=== PATIENT | male | born 1965 | race Caucasian/White ===

== ENCOUNTER 2024-06-04 10:32 | Inpatient (IN) ==
[2024-06-04 11:52] LABS: Basophils # (auto) 0.09 K/uL (0.00-0.20); Basophils % (auto) 0.8 %; Eosinophils # (auto) 0.13 K/uL (0.00-0.50); Eosinophils % (auto) 1.1 %; Hematocrit (blood only) 50.9 % (42.0-52.0); Hemoglobin 17.4 g/dl (14.0-18.0); Immature Granulocytes # (auto) 0.25 K/uL (0.01-0.20); Immature Granulocytes % (auto) 2.2 %; Lymphocytes # (auto) 2.11 K/uL (1.20-3.40); Lymphocytes % (auto) 18.3 %; Mean Corpuscular Hemoglobin 32.5 pg (25.0-34.0); Mean Corpuscular Hgb Conc 34.2 g/dL (32.0-36.0); Mean Platelet Volume 10.4 fL (9.4-12.4); Monocytes # (auto) 1.26 K/uL (0.11-0.59); Monocytes % (auto) 10.9 %; Neutrophils # (auto) 7.68 K/uL (1.40-6.50); Neutrophils % (auto) 66.7 %; Platelet Count 212 K/uL (130-400); RDW Coefficient of Variation 14.8 % (11.5-14.5); RDW Standard Deviation 51.5 fL (36.4-46.3); Red Blood Count 5.36 M/uL (4.70-6.10); White Blood Count 11.52 K/ul (4.8-10.8)
[2024-06-04 12:04] LABS: Albumin Globulin Ratio 1.1 (0.9-2); Albumin Level 4.1 gm/dl (3.4-5.0); BUN Creatinine Ratio 11.2 (10-20); Bilirubin,Total 1.9 mg/dl (0.2-1.0); Calcium 9.2 mg/dl (8.6-10.3); Creatinine Clr Calc Pharmacy 140.2 ml/min; Est GFR (African American) 109.2 ml/min; Est GFR (Non-African American) 94.3 ml/min; Globulin 3.6 gm/dl (2.5-4.0); Potassium 4.2 mmol/L (3.5-5.1); Total Protein 7.7 gm/dl (6.0-8.3)
[2024-06-04 12:09] LABS: INR 1.1 (0.9-1.1); Prothrombin Time 11.4 Seconds (9.0-12.0); Troponin I High Sensitivity 5.6 pg/ml (0-20)
--- NOTE | 2024-06-04 12:14 | XRay Report ---
SINGLE VIEW CHEST CLINICAL HISTORY: Atypical chest pain. FINDINGS: 2 PA chest radiographs are obtained. No prior studies are available for comparison at the t karel of dictation. The heart is mildly enlarged noting atherosclerotic calcification of the thoracic a yoel. The pulmonary vasculature is noncongested. Mild atelectasis is noted at the lung bases. The demetra gs and pleural spaces are otherwise clear. No pneumothorax is seen. There are chronic/healed right-si ded rib fractures. IMPRESSION: No active disease in the chest. ACT 112: Negative or not required by law. Electronically signed by: Vik Baumann M.D. 06/04/2024 12:13 PM
--- NOTE | 2024-06-04 12:49 | Emergency Department Note ---
Impression & Plan Hypertensive urgency, Hypothyroidism, Dyspnea on exertion, Alcohol dependence ED Provider Note NAME: MASOUD VELASQUEZ AGE: 58 SEX: M : 1965 ARRIVES VIA: Walk-In INFORMANT: Patient ED PROVIDER(S): Kirby Milan MD CHIEF COMPLAINT: Shortness of breath, referred. PLAN: Disposition: Admit MEDICAL DECISION MAKING: The patient is a 58-year-old gentleman with a past medical history of hypertension, hypothyroidism, alcohol use disorder/dependence, chewing tobacco use who presents to the emergency department for evaluation of ongoing dyspnea on exertion and edema which she reports has been ongoing for months with progressive worsening. Patient reports he was seen in [place] emergency department a week ago and was told he had "fluid in his lungs and heart but reports she was not given any medications., Records from this visit were eventually obtained and his visit was initially due to suicidal statements made while intoxicated. Upon becoming sober patient denied SI or interested in voluntary admission for depression. He was offered medical admission but had declined. He had a scheduled appointment with his primary care doctor subsequently to establish care who he saw yesterday and per his report was told to go to the emergency department immediately but given the patient did not want to do this yesterday who presents for evaluation today. Eventually, the patient did admit that his doctors recommendations likely were influenced by the fact that he was intoxicated when he went to his appointment. The patient reports he had been on medication for his blood pressure and thyroid 2 years ago but stopped going to a doctor at that time due to using his insurance due to increased income when he was . But since then he has been and now has insurance and is interested in reestablishing care and compliance with his medications. He admits that he should stop drinking alcohol and is open to this but adds that it has been "his coping mechanism" since not being on medications for depression as he was previously. Of note, the patient did arrive to emergency department during time of high volume, acuity and prolonged emergency department waiting times. Critical pathways initiated from triage. On evaluation patient is no distress, afebrile with blood pressure 160s/100s with heart in the 90s and vital signs otherwise stable. My examination patient does appear hypervolemic with 1+ bilateral lower extremity pitting edema. Lungs are clear with normal respiratory effort. EKG without overt acute ischemia. CXR negative for acute cardiopulmonary process per my personal preliminary review/interpretation. WBC 11.5 K, nonspecific. H/H and platelets within normal limits. Chemistry without metabolic acidosis. Electrolytes unremarkable. LFTs with total bilirubin 1.9, nonspecific and LFTs otherwise normal. Highest 2 troponin 5.6, within normal limits. BNP is normal. Lipase is not elevated. Procalcitonin is undetectable. He has not TSH is elevated at 29 with free T40.53. Respiratory BioFire was negative. We did review his workup. Discussed that it is important to reestablish care and continuity to obtain control of his medical conditions which she has gone untreated for the past couple of years. He describes numerous barriers to care including transportation, lack of detailed knowledge of his prior medications and dosing, and with this lack of background apparent difficulty in initiating his medical care with a new primary care doctor. Given the patient's barriers to care the patient did agree with referral to hospital service for consideration of admission for further management of with hypertensive urgency, hypothyroidism and alcoholism with high risk for severe alcohol withdrawal. The patient's treatment was initiated with 10 mg of IV labetalol and 20 mg of Lasix. He is additionally given 1 mg of Ativan and 50 mg of Librium to prevent withdrawal. Case was discussed with Dr. Marie, [facility] [place], who will evaluate the patient for admission. Further management per admitting team. Triage Nursing notes reviewed and agree them. Prior/external medical records reviewed Vital Signs: reviewed Differential diagnosis: Reactive airway disease, pneumonia, pneumothorax, COPD, CHF, infections, cardiac ischemia, pulmonary embolism, musculoskeletal, gastrointestinal, as well as other pathologies. ER treatment provided: See below. Diagnostics interpreted by me: ECG: Sinus rhythm with PACs, 91 bpm, no overt ST elevation or depression, QTc 442, QRS 78. Cardiac Monitoring: An order for continuous cardiac monitoring was placed and demonstrated Sinus rhythm with PACs, 91 bpm Laboratory studies: See below Imaging studies: See below Consultation(s): Case was discussed with Dr. Marie [facility] [place]ist, who will evaluate the patient for admission. HPI: The patient is a 58-year-old gentleman with a past medical history of hypertension, hypothyroidism, alcohol use disorder/dependence, chewing tobacco use who presents to the emergency department for evaluation of ongoing dyspnea on exertion and edema which she reports has been ongoing for months with progressive worsening. Patient reports he was seen in [place] emergency department a week ago and was told he had "fluid in his lungs and heart but reports she was not given any medications., Records from this visit were eventually obtained and his visit was initially due to suicidal statements made while intoxicated. Upon becoming sober patient denied SI or interested in voluntary admission for depression. He was offered medical admission but had declined. He had a scheduled appointment with his primary care doctor subsequently to establish care who he saw yesterday and per his report was told to go to the emergency department immediately but given the patient did not want to do this yesterday who presents for evaluation today. Eventually, the patient did admit that his doctors recommendations likely were influenced by the fact that he was intoxicated when he went to his appointment. The patient reports he had been on medication for his blood pressure and thyroid 2 years ago but stopped going to a doctor at that time due to using his insurance due to increased income when he was . But since then he has been and now has insurance and is interested in reestablishing care and compliance with his medications. He admits that he should stop drinking alcohol and is open to this but adds that it has been "his coping mechanism" since not being on medications for depression as he was previously. ROS: See above HPI for pertinent positives & negatives. A total of 10 systems reviewed and were otherwise negative. VITALS:See Below PHYSICAL EXAMINATION: GENERAL: Awake, alert, in no distress, BMI 47.1 HENT: Normocephalic, atraumatic. Oropharynx unremarkable. EYES: Normal conjunctiva. Sclera non-icteric. NECK: Supple. No nuchal rigidity. FROM. No JVD. RESPIRATORY: Clear to auscultation. CARDIAC: Regular rate, normal rhythm. Extremities warm and well perfused. Pulses equal. ABDOMEN: Soft, non-distended. No tenderness to palpation. No rebound or guarding. No masses. MUSCULOSKELETAL: Chest examination reveals no tenderness. The back is symmetrical on inspection without obvious abnormality. There is no CVA tenderness to palpation. No joint edema. LOWER EXTREMITIES: Calves are equal size bilaterally and non-tender. 1+ BLE edema. No discoloration. NEURO: Normal sensorium. No sensory or motor deficits noted. SKIN: No rash or jaundice noted. Kirby Milan MD Past Med/Surg History Problem List (Updated 06/05/24 @ 01:14 by Kirby Milan MD) Alcohol dependence (Acute) Dyspnea on exertion (Acute) Hypertensive urgency (Acute) Anxiety and depression GERD (gastroesophageal reflux disease) Hypothyroidism (Acute) Alcohol withdrawal SOB (shortness of breath) Chest pain Social History Smoking Status: Never smoker Tobacco Type: Smokeless Tobacco (Dip or Chew) Preferred Language: Cymro Feels Safe at Home: Yes Allergies Allergies Allergy/AdvReac Type Severity Reaction Status Date / Time Iodinated Contrast Media Allergy Intermediate Hives Verified 06/04/24 18:02 Home Meds Home Medications Medication Instructions Recorded Confirmed No Known Home Medications 06/04/24 06/04/24 Results & Data (ED) Vital Signs Vital Signs - 24 hr 06/04/24 10:45 06/04/24 15:52 06/04/24 15:56 Temperature 36.2 C L Temperature Source Temporal Artery Scan Pulse Rate 90 Pulse Rate [Finger] 93 H Respiratory Rate 28 H 18 Respiratory Effort / Characteristics Short of Breath SOB on Exertion Respiratory Depth Shallow Respiratory Pattern Tachypnea Blood Pressure 162/100 H Blood Pressure [Right Arm] 155/118 H Blood Pressure Mean 120 Blood Pressure Mean [Right Arm] 130 Pulse Oximetry 97 97 96 Oxygen Delivery Method Room Air Room Air Room Air Oxygen Flow Rate 0 Sepsis Recent Fever Within 48 Hours No Sepsis New/Unexplained Change in Mental Status No Sepsis Action Taken by Nursing No Action Required Laboratory Data Attestation: I reviewed the patient's lab results. 06/04/24 11:24 06/04/24 11:24 Lab Results 06/04/24 06/04/24 06/04/24 Range/Units 11:24 11:27 15:15 WBC 11.52 H (4.8-10.8) K/ul RBC 5.36 (4.70-6.10) M/uL Hgb 17.4 (14.0-18.0) g/dl Hct 50.9 (42.0-52.0) % MCV 95.0 (80.0-100.0) fL MCH 32.5 (25.0-34.0) pg MCHC 34.2 (32.0-36.0) g/dL RDW Std Deviation 51.5 H (36.4-46.3) fL RDW Coeff of Jorge Alberto 14.8 H (11.5-14.5) % Plt Count 212 (130-400) K/uL MPV 10.4 (9.4-12.4) fL Immature Gran % (Auto) 2.2 % Neut % (Auto) 66.7 % Lymph % (Auto) 18.3 % [place] % (Auto) 10.9 % Eos % (Auto) 1.1 % Baso % (Auto) 0.8 % Neut # (Auto) 7.68 H (1.40-6.50) K/uL Lymph # (Auto) 2.11 (1.20-3.40) K/uL [place] # (Auto) 1.26 H (0.11-0.59) K/uL Eos # (Auto) 0.13 (0.00-0.50) K/uL Baso # (Auto) 0.09 (0.00-0.20) K/uL Immature Gran # (Auto) 0.25 H (0.01-0.20) K/uL PT 11.4 (9.0-12.0) Seconds INR 1.1 (0.9-1.1) Sodium 136 (136-145) mmol/L Potassium 4.2 (3.5-5.1) mmol/L Chloride 102 (98-107) mmol/L Carbon Dioxide 25 (21-32) mmol/L Anion Gap 9 (3-11) BUN 10 (6-23) mg/dl Creatinine 0.89 (0.6-1.4) mg/dl Est Cr Clr Drug Dosing 140.2 ml/min Est GFR ( Amer) 109.2 ml/min Est GFR (Non-Af Amer) 94.3 ml/min BUN/Creatinine Ratio 11.2 (10-20) Glucose 98 (70-99(Fasting)) mg/dl Calcium 9.2 (8.6-10.3) mg/dl Magnesium 2.1 (1.7-2.4) mg/dl Total Bilirubin 1.9 H (0.2-1.0) mg/dl AST 39 (13-39) U/L ALT 47 (7-52) U/L Alkaline Phosphatase 72 (34-104) U/L Troponin I High Sens 5.6 (0-20) pg/ml B-Natriuretic Peptide 25 (0-100) pg/ml Total Protein 7.7 (6.0-8.3) gm/dl Albumin 4.1 (3.4-5.0) gm/dl Globulin 3.6 (2.5-4.0) gm/dl Albumin/Globulin Ratio 1.1 (0.9-2) Lipase 8 L (11-82) U/L Procalcitonin < 0.02 (0-0.5) ng/ml TSH 29.836 H (0.300-4.500) uIu/ml Free T4 0.53 L (0.61-1.60) ng/dl Adenovirus (PCR) Not Detected (NotDetected) B. pertussis DNA (PCR) Not Detected (NotDetected) B.parapertussis DNA PCR Not Detected (NotDetected) C. pneumoniae DNA (PCR) Not Detected (NotDetected) Coronavirus OC43 (PCR) Not Detected (NotDetected) Coronavirus HKU1 (PCR) Not Detected (NotDetected) Coronavirus 229E (PCR) Not Detected (NotDetected) SARS-CoV-2 (PCR) Not Detected (NotDetected) Coronavirus NL63 (PCR) Not Detected (NotDetected) Human Metapneumovir PCR Not Detected (NotDetected) Influenza Type A (PCR) Not Detected (NotDetected) Influenza Type B (PCR) Not Detected (NotDetected) M. pneumoniae (PCR) Not Detected (NotDetected) Parainfluenza 1 (PCR) Not Detected (NotDetected) Parainfluenza 2 (PCR) Not Detected (NotDetected) Parainfluenza 3 (PCR) Not Detected (NotDetected) Parainfluenza 4 (PCR) Not Detected (NotDetected) RSV (PCR) Not Detected (NotDetected) Entero/Rhino (PCR) Not Detected (NotDetected) Administered Medications Enoxaparin Sodium (Enoxaparin Inj 40 Mg/0.4 Ml Syr) 40 mg SQ Q12H [facility] Stop: 07/04/24 21:59 Last Admin: 06/04/24 23:49 Dose: Not Given Documented By: HB Discontinued Medications Chlordiazepoxide HCl (Chlordiazepoxide Hcl 25 Mg Cap) 50 mg PO NOW ONE Stop: 06/04/24 17:08 Last Admin: 06/04/24 17:38 Dose: Not Given Documented By: ANGELITA Furosemide (Furosemide Inj 20 Mg/2 Ml Vial) 20 mg IV ONE ONE Stop: 06/04/24 16:45 Last Admin: 06/04/24 17:38 Dose: Not Given Documented By: ANGELITA Multivitamins 10 ml/ Thiamine HCl 100 mg/ Folic Acid 1 mg/Sodium Chloride 1,011.2 mls @ 500 mls/hr IV .Q2H2M ONE Stop: 06/04/24 20:16 Last Infusion: 06/04/24 20:56 Dose: Infused Documented By: Admin: 06/04/24 18:30 Dose: 500 mls/hr Documented By: ANGELITA Labetalol HCl (Labetalol Hcl Iv 5 Mg/Ml 20ml) 10 mg IV NOW STA Stop: 06/04/24 16:45 Last Admin: 06/04/24 18:19 Dose: Not Given Documented By: ANGELITA Lorazepam (Lorazepam 1 Mg Tab) 1 mg SL NOW STA Stop: 06/04/24 17:07 Last Admin: 06/04/24 17:38 Dose: Not Given Documented By: ANGELITA Phenobarbital Sodium (Phenobarbital Sodium 130 Mg/Ml Vial) 250 mg IM NOW STA Stop: 06/04/24 17:47 Last Admin: 06/04/24 18:42 Dose: 250 mg Documented By: MEGAN Phenobarbital Sodium (Phenobarbital Sodium 65 Mg/Ml Vial) 190 mg IM Q3H MYESHA Stop: 06/05/24 00:01 Last Admin: 06/04/24 21:02 Dose: Not Given Documented By: ANGELITA Phenobarbital Sodium (Phenobarbital Sodium 130 Mg/Ml Vial) 190 mg IM Q3H MYESHA Stop: 06/05/24 00:16 Last Admin: 06/04/24 21:09 Dose: 190 mg Documented By: ANGELITA Imaging Data Radiologist's Impression: Chest X-Ray 06/04/24 00:00 SINGLE VIEW CHEST CLINICAL HISTORY: Atypical chest pain. FINDINGS: 2 PA chest radiographs are obtained. No prior studies are available for comparison at the time of dictation. The heart is mildly enlarged noting atherosclerotic calcification of the thoracic aorta. The pulmonary vasculature is noncongested. Mild atelectasis is noted at the lung bases. The lungs and pleural spaces are otherwise clear. No pneumothorax is seen. There are chronic/healed right-sided rib fractures. IMPRESSION: No active disease in the chest. ACT 112: Negative or not required by law. Electronically signed by: Vik Baumann M.D. 06/04/2024 12:13 PM Discharge Plan Visit Data Chief Complaint: Shortness of Breath/Dyspnea Stated Complaint: SOB AND CHEST TIGHTNESS ED Provider: Kirby Milan Discharge Problem: Hypertensive urgency, Hypothyroidism, Dyspnea on exertion, Alcohol dependence Patient Disposition: Admitted As Inpatient Discharge Instructions Interventions: ED Discharge Assessment Last Done: 06/04/24 21:54 Discharge Problem: Hypothyroidism Qualifiers: Hypothyroidism type: unspecified Qualified Code(s): E03.9 - Hypothyroidism, unspecified Alcohol dependence Qualifiers: Substance use status: unspecified alcohol-induced disorder Qualified Code(s): F 10.29 - Alcohol dependence with unspecified alcohol-induced disorder
[2024-06-04 16:33] LABS: Adenovirus PCR Not Detected (NotDetected); Bordetella parapertussis PCR Not Detected (NotDetected); Bordetella pertussis PCR Not Detected (NotDetected); Chlamydia pneumoniae PCR Not Detected (NotDetected); Coronavirus 229E PCR Not Detected (NotDetected); Coronavirus CoV-2 (COVID19)PCR Not Detected (NotDetected); Coronavirus HKU1 PCR Not Detected (NotDetected); Coronavirus NL63 PCR Not Detected (NotDetected); Coronavirus OC43PCR Not Detected (NotDetected); Human Metapneumovirus PCR Not Detected (NotDetected); Influenza A PCR Not Detected (NotDetected); Influenza B PCR Not Detected (NotDetected); Mycoplasma pneumoniae PCR Not Detected (NotDetected); Parainfluenza Virus 1 PCR Not Detected (NotDetected); Parainfluenza Virus 2 PCR Not Detected (NotDetected); Parainfluenza Virus 3 PCR Not Detected (NotDetected); Parainfluenza Virus 4 PCR Not Detected (NotDetected); Respiratory Syncytial VirusPCR Not Detected (NotDetected); Rhinovirus/Enterovirus PCR Not Detected (NotDetected)
--- NOTE | 2024-06-04 16:48 | History & Physical Report ---
Date of Service June 04, 2024 Assessment & Plan (1) Alcohol withdrawal: Plan: Patient presented for GARBER and midsternal chest pain x 2 months He reports he is currently drinking a 30 pack of beer and 1 bottle of whiskey per week Patient was last drink was the evening of 06/03 (3-4 shots of fireball, 3-4 beers) He is amenable to cutting back in alcohol, and getting back on his prior medications Magnesium level ordered, pending Banana bag x 1 AWSS active protocol with phenobarbital Daily thiamine and folate supplementation A.m. CBC, BMP, mag (2) SOB (shortness of breath): Plan: Ongoing shortness of breath both with exertion and at rest x 2 months Mild leukocytosis 11.52 with a neutrophil predominance; afebrile CXR without acute findings Procalcitonin WNL Troponin WNL BioFire negative BNP WNL at 25 Echocardiogram ordered, pending Continuous pulse oximetry Supplemental oxygen as needed to maintain SpO2 >94% (3) Chest pain: Plan: Troponin WNL on arrival, repeat pending EKG in sinus rhythm on arrival; no EKGs prior for comparison Continuous telemetry monitoring (4) Hypothyroidism: Plan: TSH ordered, pending Patient reports he was previously on thyroid medication (5) GERD (gastroesophageal reflux disease): Plan: Restart patient on famotidine 10 mg p.o. QAM (6) Anxiety and depression: Plan: Was previously on antidepressants and antianxiety medication, but is not sure what he was on; no records He is amenable to speaking with psychiatry regarding his current divorce/depression, which is contributing to his alcoholism Psychiatry consult appreciated Plan Disposition: Admit to PCU telemetry Full code Heart healthy diet VTE PPx: Lovenox 40 mg SQ q12h History of Present Illness Chief Complaint: SOB/dyspnea Primary Care Provider: Perry Loo MD Antonio is a 58-year-old male with PMH of HTN, alcohol use disorder, and hypothyroidism. He presented on 06/04 for midsternal chest pain and SOB x 2 m onth with an acute exacerbation over the past 24 hours. Patient is tearful and appears anxious on arrival. He reports he was at the [place] emergency department last week and was told he had "fluid around his lungs and heart". Patient is currently going through a divorce, and does report that he has been drinking more frequently due to depression. He drinks a 30 pack of beer per week, as well as 1 bottle of whiskey per week. This has been ongoing for the past 2.5 years. The last time he tried to detox, he experienced tremors/blackouts, and ended up calling an ambulance; he was subsequently hospitalized for 3-4 days; he is unsure if he was on Librium or phenobarbital at the time. Patient is frustrated as he saw a new PCP yesterday, and was told to come to the hospital due to trouble breathing; he also reports that he may have been noticeably intoxicated at his PCPs office. PCP was Perry Loo in [place]. Patient's last drink was last night on the evening of 06/03; reports he drank 3-4 shots of fireball whiskey, and 3-4 beers. Patient reports both SOB at rest and with exertion. He is unsure if it is worse when he lies flat on his back. He reports he does not sleep well anymore as he is concerned that he will quit breathing. No CPAP at night. No supplemental oxygen at baseline. He denies smoking, but does report that he would smoke "reefer" to relax. Inderjit tionally, he does chew snuff, and reports that he swallows it. Patient is amenable to cutting back on his alcohol use at this time. Patient is also amenable to seeing psychiatry while he is inpatient; no thoughts of self-harm, suicidal lesions, or thoughts of harming others. He wants to get back on his prior medications, but does not know what medications he was on; does not have records. He reports he supposed to be on antianxiety, antidepression, hypothyroid, and GERD medication. His previous pharmacy was the [facility]. Additionally, patient does note he has had worsening chest pain midsternally and on the left side with radiation to the left shoulder over the past 2 months. He reports this comes on intermittently and can last for 55 to 60 seconds at a time. He has not taken any additional medications for this pain, but does note it is new for him. Patient does have an allergy to radiocontrast dye (hives/blisters), no anaphylaxis. He denies any other medication allergies. Patient is hypertensive at 155/118 at time of admission; SpO2 96% on room air. ROS: Patient endorses intermittent midsternal chest pain, and SOB at rest and with exertion. Patient denies fever, chills, night sweats, dizziness/lightheadedness, headache, chest palpitations, abdominal pain, N/V/D, or changes in urinary/bowel habits. Allergies Allergy/AdvReac Type Severity Reaction Status Date / Time Iodinated Contrast Media Allergy Intermediate Hives Verified 06/04/24 18:02 Home Medications Medication Instructions Recorded Confirmed Type No Known Home Medications 06/04/24 06/04/24 History Past Med/Surg History Problem List (Updated 06/05/24 @ 01:14 by Kirby Milan MD) Alcohol dependence (Acute) Dyspnea on exertion (Acute) Hypertensive urgency (Acute) Anxiety and depression GERD (gastroesophageal reflux disease) Hypothyroidism (Acute) Alcohol withdrawal SOB (shortness of breath) Chest pain Social History Smoking Status: Never smoker Tobacco Type: Smokeless Tobacco (Dip or Chew) Hx Alcohol Use: Yes Alcohol type: beer and hard liquor Hx Substance Use: Yes Last Used Substance: Days (ago) Preferred Language: Togolese Communication Ability: Effective Supervisor Grinding Required: No Beliefs That Will Affect Care: None Current Living Situation: Alone Feels Safe at Home: Yes Safety Concerns: Feels Safe At This Time Assistive Devices: None Review of Systems Review of Systems: See HPI above Physical Exam Physical Exam: General: Patient is anxious and tearful in the room; non-toxic appearing; cooperative; SpO2 96% on RA HEENT: normocephalic, atraumatic; no scleral icterus; PERRLA; vision and hearing grossly intact Neck: supple; no lymphadenopathy; trachea midline Skin: Diaphoretic; warm, without signs of tenting; no cyanosis; no rashes, bruising, lesions, or erythema noted CV: chest wall NTP; RRR; S1/S2 normal; no murmurs/rubs/gallops; pulses intact and symmetric at radial, DP, and PT Lungs: no acute respiratory distress; symmetrical chest wall expansion; clear breath sounds across all lung gonzalez w/o adventitious sounds; no wheezing ABD: Soft, NTP; BS present; no rebound/guarding; suboptimal exam secondary to body habitus MSK: no tics or fasciculations; nonpitting edema noted in the LEs b/l, nonerythematous Neuro: A&Ox3; normal mood and affect; fluent speech; no focal deficits; sensation grossly intact in the LEs b/l Results & Data Results & Data Vital Signs (Past 12 Hours) Vital Signs Temp Pulse Pulse Resp BP BP Pulse Ox 06/04/24 15:56 93 H 18 155/118 H 96 06/04/24 15:52 97 06/04/24 10:45 36.2 C L 90 28 H 162/100 H 97 O2 Del Method O2 Flow Rate 06/04/24 15:56 Room Air 06/04/24 15:52 Room Air 0 06/04/24 10:45 Room Air Laboratory Results Abnormal lab results 06/04/24 Range/Units 11:24 WBC 11.52 H (4.8-10.8) K/ul RDW Std Deviation 51.5 H (36.4-46.3) fL RDW Coeff of Jorge Alberto 14.8 H (11.5-14.5) % Neut # (Auto) 7.68 H (1.40-6.50) K/uL Anderson # (Auto) 1.26 H (0.11-0.59) K/uL Immature Gran # (Auto) 0.25 H (0.01-0.20) K/uL Total Bilirubin 1.9 H (0.2-1.0) mg/dl Lipase 8 L (11-82) U/L Diagnostic Findings Chest X-Ray 06/04/24 00:00 SINGLE VIEW CHEST CLINICAL HISTORY: Atypical chest pain. FINDINGS: 2 PA chest radiographs are obtained. No prior studies are available for comparison at the time of dictation. The heart is mildly enlarged noting atherosclerotic calcification of the thoracic aorta. The pulmonary vasculature is noncongested. Mild atelectasis is noted at the lung bases. The lungs and pleural spaces are otherwise clear. No pneumothorax is seen. There are chronic/healed right-sided rib fractures. IMPRESSION: No active disease in the chest. ACT 112: Negative or not required by law. Electronically signed by: Vik Baumann M.D. 06/04/2024 12:13 PM ECG Additional Comments: ECG revealed sinus rhythm with PACs at 91 bpm; QTc 442 No prior EKGs for comparison Code Status & VTE Plan Code Status Full code VTE Prophylaxis Plan VTE Prophylaxis will be ordered: Yes Supervising Physician Co-Signing Physician Notes Patient seen and examined, chart reviewed, case discussed with Serge Castorena PA-C and I agree with the assessment and plan as above except as otherwise noted Labs and images reviewed 58-year-old male who presents with depression, alcohol use, and concerns for lower extremity swelling. He has no orthopnea, chest pain, or dyspnea. He has been for the last 2 years drinking up to 30 beers and 1/5 of fireball whiskey daily, sometimes tries to stretch this out when he runs out of money but does experience shakes and withdrawal symptoms. Last attempted to get sober when he was going to testify as part of a court case over a year ago and at that time had severe withdrawal symptoms, blacked out, and required hospitalization. Last drink evening of 06/03, over that day he had several beers and shots of whiskey. No known history of liver disease. He does not have a transaminitis Given high risk of withdrawal symptoms, severe symptoms, and history of precipitated withdrawal and with no underlying hepatic dysfunction reasonable candidate for phenobarbital. Will use [facility] protocol as below with a 8 mg/kg ideal body weight initial load IBW x (6-15mg/kg) = total loading dose Give 40% loading dose immediately IM, then 30% after 3 hours IM, then 30% after 3 hours. May check serum phenobarb level 5 hours post last IM admin WIll target 8mg/kg IBW total load. High risk of withdrawal, low-med respiratory risk 8mg/kg * 78kg IBW = 624mg. 40% loading dose = ~250mg - Give 250mg IM x1 NOW - Give 190mg IM x1 after 3 hours - Give 190mg IM x1 after another 3 hours Every 8 hours 65 mg IM as needed dose ordered. Goal RASS 0/-1 - Soft stop: 20mg/kg cumulative dose - Hard stop: 30mg/kg cumulative dose Admit to telemetry on end-tidal CO2 monitoring Folic acid, thiamine supplementation continued. Agree with remaining as above PG Care Time/CCT Total # of Minutes Spent Total Time Spent with Patient: Total time spent is greater than 50% in coordination of care (as documented) at patient's floor/unit and/or counseling patient: [place] [address] INT INP/OBS CARE 3/75MIN Patient Type New Medical Decision Making High Complexity Diagnoses Alcohol withdrawal F10.939 SOB (shortness of breath) R06.02 Chest pain R07.9 Hypothyroidism E03.9 GERD (gastroesophageal reflux disease) K21.9 Anxiety and depression F41.9; F32.A
[2024-06-04] MEDS: chlordiazePOXIDE HCl 25 MG CAP PO ONE (17:38)
[2024-06-04] MEDS: LORazepam 1 MG TAB SL STA (17:38)
[2024-06-04] MEDS: FUROSEMIDE INJ 20 MG/2 ML VIAL IV ONE (17:38)
[2024-06-04] MEDS ORDERED: Patient's ALLERGY Info needs ENTERED STA (17:43)
[2024-06-04] MEDS ORDERED: PHENobarbital PO Alcohol Withdrawal PO STA (17:46)
[2024-06-04] MEDS ORDERED: PHENobarbital sodium 65 MG/ML VIAL IM PRN (17:46)
[2024-06-04 18:11] LABS: Magnesium 2.1 mg/dl (1.7-2.4)
[2024-06-04] MEDS: LABETALOL HCL IV 5 MG/ML 20ML IV STA (18:19)
[2024-06-04 18:28] LABS: Thyroid Stimulating Hormone 29.836 uIu/ml (0.300-4.500)
[2024-06-04] MEDS: MULTI-VITAMIN INFUSION 10 ML, THIAMINE HCL 100 MG, FOLIC ACID 1 MG in SODIUM CHLORIDE 0... IV ONE (18:30)
[2024-06-04] MEDS: PHENobarbital sodium 130 MG/ML VIAL IM STA (18:42)
[2024-06-04 19:03] LABS: T4 Free Thyroxine 0.53 ng/dl (0.61-1.60)
[2024-06-04] MEDS: PHENobarbital sodium 65 MG/ML VIAL IM SCH (21:02)
[2024-06-04] MEDS: PHENobarbital sodium 130 MG/ML VIAL IM SCH (21:09)
[2024-06-04] MEDS ORDERED: ONDANSETRON INJ 2 MG/ML 2 ML VIAL IV PRN (21:53)
[2024-06-04] MEDS: ENOXAPARIN INJ 40 MG/0.4 ML SYR SQ SCH (23:49)
[2024-06-05] MEDS: MELATONIN 3 MG TAB PO PRN (01:17)
[2024-06-05 05:23] LABS: Basophils # (auto) 0.06 K/uL (0.00-0.20); Basophils % (auto) 0.6 %; Eosinophils # (auto) 0.16 K/uL (0.00-0.50); Eosinophils % (auto) 1.5 %; Hematocrit (blood only) 46.4 % (42.0-52.0); Hemoglobin 15.6 g/dl (14.0-18.0); Immature Granulocytes # (auto) 0.05 K/uL (0.01-0.20); Immature Granulocytes % (auto) 0.5 %; Lymphocytes # (auto) 1.82 K/uL (1.20-3.40); Lymphocytes % (auto) 17.5 %; Mean Corpuscular Hemoglobin 32.2 pg (25.0-34.0); Mean Corpuscular Hgb Conc 33.6 g/dL (32.0-36.0); Mean Corpuscular Volume 95.7 fL (80.0-100.0); Mean Platelet Volume 10.9 fL (9.4-12.4); Monocytes # (auto) 1.12 K/uL (0.11-0.59); Monocytes % (auto) 10.8 %; Neutrophils # (auto) 7.17 K/uL (1.40-6.50); Neutrophils % (auto) 69.1 %; Platelet Count 169 K/uL (130-400); RDW Coefficient of Variation 14.6 % (11.5-14.5); RDW Standard Deviation 51.5 fL (36.4-46.3); Red Blood Count 4.85 M/uL (4.70-6.10); White Blood Count 10.38 K/ul (4.8-10.8)
[2024-06-05 05:34] LABS: Albumin Globulin Ratio 1.2 (0.9-2); Albumin Level 3.4 gm/dl (3.4-5.0); BUN Creatinine Ratio 16.7 (10-20); Bilirubin,Total 1.4 mg/dl (0.2-1.0); Calcium 8.3 mg/dl (8.6-10.3); Est GFR (African American) 115.3 ml/min; Est GFR (Non-African American) 99.5 ml/min; Globulin 2.9 gm/dl (2.5-4.0); Potassium 3.8 mmol/L (3.5-5.1); Total Protein 6.3 gm/dl (6.0-8.3)
[2024-06-05] MEDS: LEVOTHYROXINE SODIUM 50 MCG TABLET PO SCH (06:40)
[2024-06-05] MEDS: ACETAMINOPHEN 325 MG TAB PO PRN (06:41)
--- NOTE | 2024-06-05 07:40 | Hospitalist Progress Note ---
Date of Service June 05, 2024 Assessment & Plan (1) Alcohol withdrawal: (2) SOB (shortness of breath): (3) Chest pain: (4) Hypothyroidism: (5) GERD (gastroesophageal reflux disease): (6) Anxiety and depression: Plan 1. Alcohol Withdrawl: Came in withdrawal vs anxiety overlap symptom. Treated withdrawal with Mass gen protocol with Phenobarbitone at ER Fluid correction done. Thiamine, Folate supplementation done. Banana bag 2. SOB: Cardiac vs Pulmonary( COPD or interstitial) vs OHS Ongoing shortness of breath both with exertion and at rest x 2 months Noticeable at rest on our evaluation. Chest X-ray: NAD, Afebrile throughout Procalcitonin WNL/ Troponin WNL/ BioFire negative/ BNP WNL at 25 Echocardiogram: Baseline Normal, EF: 50-55%; No wall motion abnormality Continuous pulse oximetry Supplemental oxygen as needed to maintain SpO2 >94% Plan: Chest CT with contrast/ PFT 3. Chest pain: GERD vs Cardiac cause Explains his chest pain as typical to cardiac cause Radiates towards left arm and neck Troponin WNL on arrival EKG in sinus rhythm on arrival; no EKGs prior for comparison Continuous telemetry monitoring Overnight: NSR Plan: Chemical stress test (limited physical d/t SOB) 4. Hypothyroidism: Endorses BL leg edema, chronic weakness, unexplained weight gain TSH 29.83 Patient reports he was previously on thyroid medication Levothyroxine 50 mcg started 5. GERD: Chronic; likely secondary to alcohol use Restart patient on famotidine 10 mg PO OD 6. Anxiety/Depression: Multifactorial Major episodes in personal life; lost close family members; had recent divorce, lost insurance Was previously on antidepressants and antianxiety medication, but is not sure what he was on; no recordsolism Psychiatry consult: Favor retrial of Escitalopram. Recommend Escitalopram 10mg daily once stable Disposition: Admit to PCU telemetry Full code Heart healthy diet VTE PPx: Lovenox 40 mg SQ q12h Admission and Anticipated Discharge Date Admission Date: June 04, 2024 Supervising Physician Co-Signing Physician Notes I personally examined the patient and verified all zamudio points of history and exam, discussed case, and agree with decision making with Dr Tadeo significant dyspnea on exertion. Also significant depression. Poor social support. Vitals noted, in general he is awake and alert initially quite dyspneic, he had just gotten into bed. Whenever he sitting for a little bit his shortness of breath seems to let up some. Breathing is moderately labored whenever he has exerted very little, once he is able to rest for several minutes he is able to calm down unlabored breathing. Somewhat diminished air entry with scattered wheezing and rhonchi, as well as some degree of upper airway stridor. No focal neurodeficits. Dyspnea on exertionmain concerns would be anginal equivalent versus chronic lung disease. Echo pendingif normal, would strongly consider pharmacologic stress echo; chest x-ray normalbut long history of dust exposureCT chest and spirometry. Consider obesity hypoventilation, although with his bicarb being normal on his basic metabolic panel this at least is somewhat reassuringbut low threshold for ABG/sleep studyspirometry obviously would help with this as well. Alcohol withdrawalseems to be doing okay in this regard. Continue to follow. On phenobarbital at this time. Hypothyroidismprobably is acting as an amplifier for his dyspneabut I doubt it is the entire picture. Start Synthroid. Continue to follow depression/anxiety in desperate need of social support. Med management and outpatient follow-up as best as possible. Aurora Alvarez was still anxious when I met him today morning. He says he feels shortness of breath while walking few steps with some heaviness in his chest. Yesterday as well, he presented with chest pain radiating to his left arm and jaws. He mentions he has PCP visit [facility] who mentioned about some fluid in his heart and lungs. He is tearful about what he is going through in life, he seems really sad and want to get better. He is unhappy that he lost his job because he cant function properly due to his physical status. He wants to be able to be normal again. Review of Systems Review of Systems: See HPI above Physical Exam Physical Exam: General: Patient is anxious non-toxic appearing; cooperative HEENT: Normocephalic, Atraumatic; no scleral icterus and hearing grossly intact Neck: Supple; No lymphadenopathy; Trachea midline Skin: Warm and Non tender CVS : S1S2 M0 , regular rhythm, Lungs: BL VBS with prolonged expiration;reduced air entry, occasional wheeze+ Abd: Soft, Non tender, BS+nt MSK: no tics or fasciculations; nonpitting edema + BL LL Neuro: Grossly intact Results & Data Results & Data Vital Signs (Past 12 Hours) Vital Signs Temp Pulse Pulse Resp BP Pulse Ox O2 Del Method 06/05/24 01:58 81 17 130/87 96 06/05/24 01:18 89 18 06/05/24 00:08 36.8 C 84 20 129/83 96 Room Air 06/04/24 22:00 87 18 104/84 96 Room Air Resident Activity Tracking Resident Involvement: Resident Care Provided Care Provided: Adult Hospital Medicine (4) Hypothyroidism Hypothyroidism type: unspecified Qualified Code(s): E03.9 - Hypothyroidism, unspecified
[2024-06-05] MEDS: THIAMINE HCL 100 MG TAB PO SCH (08:22)
[2024-06-05] MEDS: FAMOTIDINE 10 MG TABLET PO SCH (08:22)
[2024-06-05] MEDS: FOLIC ACID 1 MG TAB PO SCH (08:22)
[2024-06-05] MEDS: PHENobarbitaL 30 MG TAB PO SCH (11:07)
--- NOTE | 2024-06-05 15:47 | Psychiatric Consultation ---
Date of Consultation June 05, 2024 Impression / Recommendations Impression Patient is a 58-year-old male history of hypertension, hypothyroidism, alcohol dependence, tobacco dependence who presents with shortness of breath and alcohol withdrawal. Patient had a recent visit to [facility] and declined inpatient medical admission 1 week ago. Psychiatry consulted for anxiety and depression evaluation Patient presents a history of depression and alcohol dependence. He presents a limited history of sobriety and denies current withdrawal symptoms. Labs reviewed: TSH elevated with low free T3; CBC and CMP within expected limits. Patient was encouraged to maintain sobriety and restart antidepressant. Patient is precontemplative about abstaining from alcohol and is requesting discharge. Counseled patient on the importance of continued hospitalization, benefits of rehab, benefits of retrialing an antidepressant. No acute safety concerns presented. Not interested in rehab. Overall, I spent a total of 60 minutes with this case including review of chart records, nursing report, review of lab work, direct evaluation of the patient at bedside, counseling the patient, discussion of the patient with the hospitalist provider, discussion with the psychiatric liaison during clinical rounds, and documentation in the electronic health record. (1) Alcohol dependence: Substance use status: unspecified alcohol-induced disorder Qualified Code(s): F10.29 - Alcohol dependence with unspecified alcohol-induced disorder (2) Anxiety and depression: Plan -Pt encourage to f/u with PCP regarding retrial of Escitalopram. Counseled that treatment is effective with sobriety from alcohol. -If pt changes mind and decides to remain admitted, recommend Escitalopram 10mg daily and f/u with PCP. Psych History Identifying Data Patient is a 58-year-old male history of hypertension, hypothyroidism, alcohol dependence, tobacco dependence who presents with shortness of breath and alcohol withdrawal. Patient had a recent visit to [facility] and declined inpatient medical admission 1 week ago. Psychiatry consulted for anxiety and depression evaluation Chief Complaint "Want to know what is going on" History of Present Illness the patient appears acutely upset. He reports not knowing his current situation wants to leave. Says that he went to [facility] recently and was not treated well. He reports coming here because of shortness of breath and wanted to get on the right medications. He asked about his thyroid labs. patient was educated on his lab work and reports importance of being on thyroid medication. Says he wants to be back on his water pill. Says he is upset because he got the wrong lunch. He reports recent decrease in energy. Has been hard to leave his house because of shortness of breath and lack of transport. Complains of difficulty sleeping. Says previously he liked to [place] and fish but is no longer able to do so. He reports nothing really brings him vivian anymore. He denies suicidal ideation. He reports motivation to improve his health situation. he reports being frustrated from a recent divorce that happened in last April. Says other stressors include a friend who was killed and that murder only got 20 years in [facility] and this upsets him. Reports past lexapro and tolerated it. Reports drinking 1/2 gallon of whiskey and 30 pack of beers per week. He reports being sober for the last 2 to 3 days. He denies having any withdrawal symptoms and is not seen shaking. Says that he was last sober 1.5 years ago. Reports past detox and sobriety of 3.5 months. Says his main stud driver for drinking is to escape his problems. Reports that he wants to cut down drinking but does not want to eliminate it completely. patient appears frustrated and is asking to leave. Allergies Allergy/AdvReac Type Severity Reaction Status Date / Time Iodinated Contrast Media Allergy Intermediate Hives Verified 06/04/24 18:02 Home Medications Medication Instructions Recorded Confirmed Type No Known Home Medications 06/04/24 06/04/24 History Patient History Social History Smoking Status: Never smoker Tobacco Type: Smokeless Tobacco (Dip or Chew) Hx Alcohol Use: Yes Alcohol type: beer and hard liquor Hx Substance Use: Yes Last Used Substance: Days (ago) Preferred Language: Hebrew Communication Ability: Effective Habilitation Worker Required: No Beliefs That Will Affect Care: None Current Living Situation: Alone Feels Safe at Home: Yes Safety Concerns: Feels Safe At This Time Assistive Devices: None Physical Exam Mental Examination: Eye Contact: Maintains Eye Contact Motor Behavior: Unremarkable Speech: Normal Mood: Irritable Affect: Congruent Thought Process: Intact and Linear Thought Content: Intact Hallucinations: None Insight: Poor Judgement: Poor Vital Signs (Past 24 Hours): Last Vital Signs Temp 36.8 C 06/05/24 00:08 Pulse 81 06/05/24 08:39 Resp 18 06/05/24 08:39 BP 136/91 06/05/24 08:39 Pulse Ox 94 06/05/24 08:39 O2 Del Method Room Air 06/05/24 08:39 O2 Flow Rate 0 06/04/24 15:52 Results & Data (PSY) Medications Administered Acetaminophen (Acetaminophen 325 Mg Tab) 650 mg PO Q4H PRN PRN Reason: Pain or Fever Stop: 07/04/24 21:52 Last Admin: 06/05/24 06:41 Dose: 650 mg Documented By: YAW Enoxaparin Sodium (Enoxaparin Inj 40 Mg/0.4 Ml Syr) 40 mg SQ Q12H [facility] Stop: 07/04/24 21:59 Last Admin: 06/05/24 10:23 Dose: Not Given Documented By: Admin: 06/04/24 23:49 Dose: Not Given Documented By: DIMAS Famotidine (Famotidine 10 Mg Tablet) 10 mg PO [facility] Stop: 07/05/24 08:59 Last Admin: 06/05/24 08:22 Dose: 10 mg Documented By: AMELIA Folic Acid (Folic Acid 1 Mg Tab) 1 mg PO [facility] Stop: 07/05/24 08:59 Last Admin: 06/05/24 08:22 Dose: 1 mg Documented By: AMELIA Levothyroxine Sodium (Levothyroxine Sodium 50 Mcg Tablet) [facility] Stop: 07/05/24 06:29 Last Admin: 06/05/24 06:40 Dose: 50 mcg Documented By: YAW Melatonin (Melatonin 3 Mg Tab) 3 mg PO HS PRN PRN Reason: Sleep Stop: 07/05/24 00:49 Last Admin: 06/05/24 01:17 Dose: 3 mg Documented By: DIMAS Phenobarbital (Phenobarbital 30 Mg Tab) 60 mg PO Q12H [facility] Stop: 06/06/24 00:01 Last Admin: 06/05/24 11:07 Dose: 60 mg Documented By: AMELIA Thiamine HCl (Thiamine Hcl 100 Mg Tab) [facility] Stop: 07/05/24 08:59 Last Admin: 06/05/24 08:22 Dose: 100 mg Documented By: AMELIA [place] [address] IN/OBS CONSULT LVL 4,60M Patient Type New History Expanded Problem Focused Exam Expanded Problem Focused Medical Decision Making Moderate Complexity Diagnoses Alcohol dependence F10.29 Substance use status: unspecified alcohol-induced disorder Anxiety and depression F41.9; F32.A
--- NOTE | 2024-06-05 17:47 | XCELERA ---
[id number] [id number]
--- NOTE | 2024-06-05 19:12 | Billing Data ---
Date of Service June 05, 2024 Coding Level of Care Code 32467 SUB INP/OBS CARE MIN
--- NOTE | 2024-06-06 06:51 | Hospitalist Progress Note ---
Date of Service June 06, 2024 Assessment & Plan (1) Alcohol withdrawal: (2) SOB (shortness of breath): (3) Chest pain: (4) Hypothyroidism: (5) GERD (gastroesophageal reflux disease): (6) Anxiety and depression: Plan 1. Alcohol Withdrawl: Came in withdrawal vs anxiety overlap symptom. Treated withdrawal with Mass gen protocol with Phenobarbitone at ER Fluid correction done/ thiamine, Folate supplementation done. Banana bag given 2. SOB: Cardiac vs Pulmonary( COPD or interstitial) vs OHS Ongoing shortness of breath both with exertion and at rest x 2 months Noticeable at rest on our evaluation. Chest X-ray: NAD, Afebrile throughout Procalcitonin WNL/ Troponin WNL/ BioFire negative/ BNP WNL at 25 Echocardiogram: Baseline Normal, EF: 50-55%; No wall motion abnormality Continuous pulse oximetry: Sp02 maintained Supplemental oxygen as needed to maintain SpO2 >94% Plan: Chest CT with contrast; No abnormality detected( formal report awaited) Stress test with Dobutamine done today: No Ischemia( formal report awaited) 3. Chest pain: GERD vs Cardiac cause Explains his chest pain as typical to cardiac cause Radiates towards left arm and neck Troponin WNL on arrival EKG in sinus rhythm on arrival; no EKGs prior for comparison Continuous telemetry monitoring Overnight: NSR Chemical stress test done today; No ischemia 4. Hypothyroidism: Endorses BL leg edema, chronic weakness, unexplained weight gain TSH 29.83 Patient reports he was previously on thyroid medication Levothyroxine 50 mcg started 5. GERD: Chronic; likely secondary to alcohol use Restart patient on famotidine 10 mg PO OD 6. Anxiety/Depression: Multifactorial Major episodes in personal life; lost close family members; had recent divorce, lost insurance Was previously on antidepressants and antianxiety medication, but is not sure what he was on; no records Psychiatry consult: Favor retrial of Escitalopram. Recommend Escitalopram 10mg daily once stable Disposition: Admit to PCU telemetry Full code Heart healthy diet VTE PPx: Lovenox 40 mg SQ q12h Admission and Anticipated Discharge Date Admission Date: June 04, 2024 Supervising Physician Co-Signing Physician Notes I personally examined the patient and verified all zamudio points of history and exam, discussed case, and agree with decision making with Dr Carlyle GARBER a little better. updated as best i can. testing still pending. Vitals noted, nad. breathing unlabored. no conversational dyspnea. no focal neuro deficits Dyspnea on exertionecho noted, stress echo and CT chest peinding. 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 Alcohol withdrawalseems to be doing okay in this regard. ok to stop phenobarb Hypothyroidismprobably is acting as an amplifier for his dyspneabut I doubt it is the entire picture. Started Synthroid. Continue to follow depression/anxiety in desperate need of social support. Med management and outpatient follow-up as best as possible. Subjective Antonio was better comfortable today compared to yesterday. He denied phenobarbitone this morning and does not want more doses. She mentioned he did not sleep well, and his sleep baseline is usually like this. He feels less anxious than yesterday. Nurse on his bedside mentions he's doing well otherwise. Baseline SOB is there, but he is way more comfortable. Review of Systems Review of Systems: See HPI above Physical Exam Physical Exam: General: Patient is anxious non-toxic appearing; cooperative HEENT: Normocephalic, Atraumatic; no scleral icterus and hearing grossly intact Neck: Supple; No lymphadenopathy; Trachea midline Skin: Warm and Non tender CVS : S1S2 M0 , regular rhythm, Lungs: BL VBS with prolonged expiration;reduced air entry, occasional wheeze+ Abd: Soft, Non tender, BS+nt MSK: no tics or fasciculations; nonpitting edema + BL LL Neuro: Grossly intact Results & Data Results & Data Vital Signs (Past 12 Hours) Vital Signs Temp Pulse Pulse Resp BP Pulse Ox O2 Del Method 06/06/24 02:39 36.8 C 84 18 140/78 96 Room Air 06/05/24 22:51 36.9 C 84 18 129/82 96 Room Air 06/05/24 22:19 84 06/05/24 19:25 Room Air 06/05/24 19:22 36.6 C 74 18 128/81 94 Room Air Resident Activity Tracking Resident Involvement: Resident Care Provided Care Provided: Adult Hospital Medicine (4) Hypothyroidism Hypothyroidism type: unspecified Qualified Code(s): E03.9 - Hypothyroidism, unspecified
[2024-06-06 07:53] LABS: Calcium 8.6 mg/dl (8.6-10.3); Potassium 4.2 mmol/L (3.5-5.1)
[2024-06-06 07:59] LABS: BUN Creatinine Ratio 12.8 (10-20); Est GFR (African American) 115.3 ml/min; Est GFR (Non-African American) 99.5 ml/min
[2024-06-06] MEDS: PHENobarbitaL 30 MG TAB PO SCH (12:23)
--- NOTE | 2024-06-06 15:37 | CT Scan Report ---
CT SCAN OF THE CHEST WITHOUT IV CONTRAST CLINICAL HISTORY: Dyspnea on exertion. COMPARISON STUDY: Chest x-ray dated 06/04/2024. TECHNIQUE: CT scan of the thorax was performed from the thoracic inlet to the upper abdomen. Images are reviewed in the axial, sagittal, and coronal planes. IV contrast was not administered for this ex amination as per the referring clinician. A dose lowering technique was utilized adhering to the [facility] [place]. CT DOSE: 998.15 mGy.cm FINDINGS: Thyroid: The left lobe is atrophic. The right lobe is normal in size and heterogeneous in attenuation . Thoracic aorta: The thoracic aorta is normal in caliber and demonstrates standard 3-vessel arch anato my. Heart: The heart is top normal in size and without pericardial effusion. There is coronary artery ath erosclerosis. Lungs and pleural spaces: There is no airspace consolidation or pleural effusion. The trachea and gene tral airways are clear. A large calcified granuloma is seen in the right lower lobe. There is depende nt scarring/atelectasis. Mediastinum: There is no mediastinal lymphadenopathy. Kaila: Not well assessed without IV contrast. Axillae: There is no axillary lymphadenopathy. Upper abdomen: Partially visualized upper abdominal viscera is within normal limits. Skeletal structures: No lytic or blastic bony lesions are seen. Mild degenerative change is noted in the thoracic spine. Soft tissues: Gynecomastia is noted. IMPRESSION: 1. There is no airspace consolidation or pleural effusion. 2. Coronary artery atherosclerosis. 3. Additional findings as above. ACT 112: Negative or not required by law. Electronically signed by: Vik Baumann M.D. 06/06/2024 3:35 PM
[2024-06-06] MEDS: ATROPINE SULFATE 0.1 MG/ML 10ML SYR IV ONE (15:45)
[2024-06-06] MEDS: DOBUTamine HCL 12.5 MG/ML 20 ML VIAL IV ONE (15:46)
[2024-06-06] MEDS: METOPROLOL TARTRATE 1 MG/ML VIAL IV ONE (15:47)
--- NOTE | 2024-06-06 18:30 | Billing Data ---
Date of Service June 06, 2024 Coding Level of Care Code 63507 SUB INP/OBS CARE MIN
--- NOTE | 2024-06-06 20:30 | XCELERA ---
[id number]
[2024-06-06] MEDS: MELATONIN 3 MG TAB PO PRN (20:53)
--- NOTE | 2024-06-06 21:49 | Electrocardiogram Report ---
Test Reason : Blood Pressure : */* mmHG Vent. Rate : 91 BPM Atrial Rate : 91 BPM P-R Int : 142 ms QRS Dur : 78 ms QT Int : 360 ms P-R-T Axes : 21 55 40 degrees QTcB Int : 442 ms Sinus rhythm with Premature atrial complexes Otherwise normal ECG No previous ECGs available Confirmed by Joe Serrano ([id number]) on 06/06/2024 9:49:08 PM Referred By: Confirmed By: Joe Serrano
[2024-06-06] MEDS: LORazepam 2 MG/1 ML VIAL IV STA (22:13)
[2024-06-07] MEDS: LORazepam 2 MG/1 ML VIAL IV STA (02:01)
--- NOTE | 2024-06-07 10:07 | Discharge Summary ---
Date of Service June 07, 2024 Admission HPI Per Admitting Provider Antonio is a 58-year-old male with PMH of HTN, alcohol use disorder, and hypothyroidism. He presented on 06/04 for midsternal chest pain and SOB x 2 month with an acute exacerbation over the past 24 hours. Patient is tearful and appears anxious on arrival. He reports he was at the [place] emergency department last week and was told he had "fluid around his lungs and heart". Patient is currently going through a divorce, and does report that he has been drinking more frequently due to depression. He drinks a 30 pack of beer per week, as well as 1 bottle of whiskey per week. This has been ongoing for the past 2.5 years. The last time he tried to detox, he experienced tremors/blackouts, and ended up calling an ambulance; he was subsequently hospitalized for 3-4 days; he is unsure if he was on Librium or phenobarbital at the time. Patient is frustrated as he saw a new PCP yesterday, and was told to come to the hospital due to trouble breathing; he also reports that he may have been noticeably intoxicated at his PCPs office. PCP was Perry Loo in [place]. Patient's last drink was last night on the evening of 06/03; reports he drank 3-4 shots of fireball whiskey, and 3-4 beers. Patient reports both SOB at rest and with exertion. He is unsure if it is worse when he lies flat on his back. He reports he does not sleep well anymore as he is concerned that he will quit breathing. No CPAP at night. No supplemental oxygen at baseline. He denies smoking, but does report that he would smoke "reefer" to relax. Additionally, he does chew snuff, and reports that he swallows it. Patient is amenable to cutting back on his alcohol use at this time. Patient is also amenable to seeing psychiatry while he is inpatient; no thoughts of self-harm, suicidal lesions, or thoughts of harming others. He wants to get back on his prior medications, but does not know what medications he was on; does not have records. He reports he supposed to be on antianxiety, antidepression, hypothyroid, and GERD medication. His previous pharmacy was the [facility]. Additionally, patient does note he has had worsening chest pain midsternally and on the left side with radiation to the left shoulder over the past 2 months. He reports this comes on intermittently and can last for 55 to 60 seconds at a time. He has not taken any additional medications for this pain, but does note it is new for him. Patient does have an allergy to radiocontrast dye (hives/blisters), no anaphylaxis. He denies any other medication allergies. Patient is hypertensive at 155/118 at time of admission; SpO2 96% on room air. ROS: Patient endorses intermittent midsternal chest pain, and SOB at rest and with exertion. Patient denies fever, chills, night sweats, dizziness/lightheadedness, headache, chest palpitations, abdominal pain, N/V/D, or changes in urinary/bowel habits. Principal Diagnosis Alcohol Withdrawal SOB Discharge Exam General: patient resting comfortably, NAD, non-toxic in appearance, answers questions appropriately. Skin: warm, dry, intact HEENT: NC/AT, anicteric sclera, conjunctiva without injection, moist mucus membranes. Heart: +S1/S2, regular, no m/r/g Lungs: equal air entry bilaterally, no rales/rhonchi/wheezes Abd: +BS, soft, NT/ND Ext: warm, no clubbing/cyanosis, 2+ edema in bilateral LE Neuro: nonfocal, speech intact, no facial droop, moving all extremities. Discharge Data Allergies Allergy/AdvReac Type Severity Reaction Status Date / Time Iodinated Contrast Media Allergy Intermediate Hives Verified 06/04/24 18:02 Consultations 06/04/24 16:44 ED Decision to Admit Stat Ordered Studies 06/06/24 08:38 CT chest diagnostic wo con Routine Hospital Course (1) Alcohol withdrawal: - Arrived with withdrawal vs anxiety overlap symptom. - Treated withdrawal with Mass gen protocol with Phenobarbital in ED - Fluid correction/thiamine, Folate supplementation done. - Stable (2) SOB (shortness of breath): - Ongoing shortness of breath both with exertion and at rest x 2 months - Chest X-ray: NAD, Afebrile throughout - Procalcitonin WNL/ Troponin WNL/ BioFire negative/ BNP WNL at 25 - Echocardiogram: Baseline Normal, EF: 50-55%; No wall motion abnormality - Chest CT with contrast; No abnormality detected - Stress test with Dobutamine done today: No Ischemia - Breathing stable w/o cough or wheeze 06/07 am (3) Chest pain: - Explains his chest pain as typical to cardiac cause - Radiates towards left arm and neck - Troponin normal on arrival - EKG in sinus rhythm on arrival; no EKGs prior for comparison - Continuous telemetry monitoring over stay: NSR - Chemical stress test done; No ischemia (4) Hypothyroidism: - Endorses BL leg edema, chronic weakness, unexplained weight gain - TSH 29.83 - Patient reports he was previously on thyroid medication before stopping due to insurance reasons, was on 225 mcg - Levothyroxine 50 mcg started, will discharge patient on 150 mcg - Recheck TSH and adjust Levothyroxine as needed at next pcp visit 1-2 weeks from today (5) GERD (gastroesophageal reflux disease): - Restart patient on famotidine 10 mg PO OD (6) Anxiety and depression: - Major recent events in personal life; lost close family members; had recent divorce, lost insurance - Was previously on antidepressants and antianxiety medication, but is not sure what he was on; no records - Psychiatry consulted recommendation Escitalopram 10mg daily once stable - Causes of anxiety/depression multifactorial, with hypothyroidism also playing an effect - Patient to follow-up with PCP 1-2 weeks after stay to determine need for SSRI therapy Total Time Total Time Spent Total Time Spent (In Minutes): See attending attestation Discharge Plan Discharge Items Patient Disposition: Home - Self-Care Reason For Visit: SOB AND CHEST TIGHTNESS Discharge Diagnosis: Alcohol Withdrawal SOB Activity: Per Instructions section Non-emergency contact: Primary Care Provider Call non-emergency contact if: your pain is not controlled, your pain is worsening and your temperature is above 101.5 Follow-up/Referrals: Perry Loo MD [Primary Care Provider] - Diet: Regular Addtl Attending Provider Instructions: You were admitted to the hospital for alcohol withdrawal and shortness of breath. You were treated with Mass general protocol with phenobarbital. Fluids were corrected, and thiamine and folate was supplemented as necessary as well as other supportive care measures. Your shortness of breath likely is largely due to obesity hypoventilation syndrome. Brisk exercise for 150 min per week or 30 min per day, a caloric reduction and weight reduction will help improve your shortness of breath and quality of life. Unmanaged hypothyroidism is also likely is playing a role in your anxiety, depression, weight gain and thus shortness of breath. We have restarted your thyroid medication, Levothyroxine to help manage this condition. A discharge summary will be sent to your primary care physician to ensure continuity of care. Please bring this discharge summary with you to your next office appointment so that your provider can review it at that time. Follow-up appointments: Make a follow-up appointment with your PCP within the next week. It is very important that you follow up with them shortly after discharge from the hospital. At the PCP office discuss your levothyroxine dosage and ask about checking your TSH levels so that the levothyroxine dosage can be adjusted. Also discuss potentially starting up SSRI therapy in the outpatient setting to help you better manage your depression and anxiety Medications: Your medication list has been reviewed and reconciled upon discharge to ensure accuracy and continuity of care. An updated list of all your medications is included with your hospital discharge paperwork. Please review this list closely, and make note of any changes. We sent a new medication called Levothyroxine to your pharmacy. Take Levothyroxine 150 mcg 1 capsule 1 time per day. It is important that you take this medication consistently and follow-up with your PCP to adjust the dosage based on your TSH labs taken. If you have any issues filling these prescriptions, please call [phone] and ask to leave a message for Dr. Casiano Take your medications as instructed; do not skip a dose of your medicines. Make sure all of your doctors know every medicine you are taking (including [id number] medicines, vitamins, and supplements). Call your primary care provider before taking any new medicines (including over- the-counter medicines, vitamins, and supplements), because some of these may interact with your current medications, or may make your symptoms worse. Tell your primary care provider if you cannot afford your medications. CONTACT YOUR PRIMARY CARE PROVIDER if you experience any of the following: Worsening of symptoms Fever, chills, or fatigue Difficulty following your treatment plan, or difficulty taking medications CALL 911 OR GO TO THE EMERGENCY DEPARTMENT if you experience any of the following: Sudden, severe abdominal pain or nausea/vomiting Severe chest pain, or chest pain that radiates (moves) to your jaw or arm Sudden, severe shortness of breath or difficulty breathing Thank you for allowing us to participate in your care. Pending Studies at Discharge: No Stand-Alone Forms: My [facility], Smoking Cessation Medications and DC Order Prescriptions: New levothyroxine 150 mcg capsule 150 mcg PO DAILY Qty: 30 0RF thiamine HCl (vitamin B1) 100 mg tablet 100 mg PO DAILY Qty: 30 0RF folic acid 1 mg tablet 1 mg PO DAILY Qty: 30 0RF Discharge Orders: Discharge Order (Routine); Ordered 06/07/24 Ordered By: Logan Casiano Admission Data Admit Date/Time: 06/04/24 17:48 Attending Provider: Orestes Parikh Admit Provider: Sage Marie Primary Care Provider: Perry Loo Other Providers: Sage Marie Other Interventions: Discharge Summary Assessment (RN) Last Done: 06/07/24 11:41 Supervising Physician Co-Signing Physician Notes I personally examined the patient and verified all zamudio points of history and exam, discussed case, and agree with decision making with Dr Casiano Dyspnea on exertion a lot better. Discussed stress test and CT scan are reassuringbreathing is likely weight related, concern on OHSdiscussed sleep study. Discussed Synthroid. Discussed weight loss (in the context of starting Synthroid being helpful, as well as limiting alcohol being a significant cut off on calorie intake, as well as regular exercise as a good means not only for weight loss but stress/depression management. Vitals noted, nad. breathing unlabored. no conversational dyspnea. no focal neuro deficits Dyspnea on exertionecho noted, stress echo and CT chest reassuring. 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 outpatient sleep study and PFTs. Given his obesity with a BMI of 47.1, we discussed not only getting back on Synthroid to help with weight management, but eliminating alcohol to reduce calorie intake, and regular exercise to help lose weight all may be quite helpful in improving his dyspnea as well. Alcohol withdrawalseems to be doing okay in this regard. off of any treatment for 24 hours Hypothyroidismprobably is acting as an amplifier for his dyspneabut I doubt it is the entire picture. today in discussion he notes that a few years ago he was actually on somewhere in the neighborhood of 225 mcg of Synthroid but has been off of it for several yearswe discussed titrating up to an effective dose especially whenever someone is quite hypothyroidshe expressed understanding. Synthroid 150 mcg for now. Repeat TSH in about 4 weeks, PCP to continue to adjust the dose. depression/anxiety in desperate need of social support. Med management and outpatient follow-up as best as possible. Discussed exercise as a means to help manage his depression anxiety as well. Resident Activity Tracking Resident Involvement: Resident Care Provided Care Provided: Adult [facility] Medicine
[2024-06-07 10:47] VITALS: PULSE 59; RESP 20; TEMP 97.9; O2SAT 98
[2024-06-07 11:42] VITALS: BP 128/75
--- NOTE | 2024-06-07 18:29 | Billing Data ---
Date of Service June 07, 2024 Coding Level of Care Code 82419 IN/OBS DISCH 30 MIN/LESS
[2024-06-07] MEDS ORDERED: PHENobarbitaL 30 MG TAB PO SCH (23:45)
== END 2024-06-07 11:42 | disposition home or self-care (01) | DRG 897 ==
LOC: ED 10:32 → SUATTDRO 17:48 → EDINP 17:48 → 2S 21:54